=== PATIENT | female | born 1975 | race Native Hawaiian/Other Pacific Islander ===

== ENCOUNTER 2023-04-20 20:59 | Emergency (ER) | payer OTHER ==
[2023-04-20 23:13] LABS: PLATELET COUNT 223 K/uL (152-353)
[2023-04-20 23:18] LABS: POTASSIUM 3.6 mmol/L (3.6-5.2)
== END 2023-04-21 01:01 | disposition home or self-care (01) ==
LOC: ED 20:59
PROVIDERS: Family Medicine
DX: U07.1 COVID-19 (principal); R50.9 Fever, unspecified; F17.210 Nicotine dependence, cigarettes, uncomplicated
CPT/HCPCS: 80053; 81000; 81025; 85027; 87086; 87088; 87502; 87635; 87651; 96365; 96372; 99284; J1885; U0003

== ENCOUNTER 2023-05-05 10:20 | Outpatient (CLI) | payer OTHER | END 2023-05-05 19:27 | disposition home or self-care (01) | LOC: RAD 10:20 | PROVIDERS: ATTEND Physician Assistant | DX: M54.2 Cervicalgia (principal) ==

== ENCOUNTER 2023-05-12 09:32 | Outpatient (CLI) | payer OTHER | END 2023-05-12 18:37 | disposition home or self-care (01) | LOC: RAD 09:32 | PROVIDERS: ATTEND Physician Assistant | DX: M54.59 Other low back pain (principal) ==

== ENCOUNTER 2023-06-03 13:37 | Outpatient (CLI) | payer OTHER | END 2023-06-03 19:03 | disposition home or self-care (01) | LOC: MRI 13:37 | PROVIDERS: ATTEND Physician Assistant | DX: M54.12 Radiculopathy, cervical region (principal) ==